=== PATIENT | female | born 1955 | race Caucasian/White ===

== ENCOUNTER 2024-07-21 12:51 | Outpatient (AMB) | payer MEDICARE, SELFPAY ==
--- NOTE | 2024-07-21 12:52 | A.OFFVIS_ITS ---
Vital Signs 07/21/24 12:56 Height 5 ft 4 in Weight 174 lb BMI 29.9 BP 162/92 H Blood Pressure Location Rt brachial Position Sitting Intake Visit Reasons: ENP: Dizziness/Tremors Intake Note: Patient presents for dizziness and tremors Allergies niacin Allergy (Severe, Verified 07/21/24 12:56) Itching acetaminophen [From Percocet] Allergy (Unknown, Verified 07/21/24 12:56) Unknown oxycodone [From Percocet] Allergy (Unknown, Verified 07/21/24 12:56) Unknown Medication List - Last Reconciled 07/21/24 by Niesha Ingram MD ezetimibe 10 mg PO fenofibrate 160 mg PO folic acid 1 mg PO glipizide ER mg PO icosapent ethyl (Vascepa) 2 grams PO BID insulin glargine (Lantus Solostar U-100 Insulin) units subcut levothyroxine 75 mcg PO metformin 500 mg PO omeprazole 20 mg PO DAILY pioglitazone 30 mg PO rosuvastatin 40 mg PO sertraline 150 mg PO HPI Comments Details: 69y/o Right handed female comes for evaluation of tremors and headaches. she has fh/o tremors in her father and sister. She started noticing tremors in both his hands about 5 years ago It was mild but now she feels it affects her daily activities, like drinking, eating, writing any action with fine motor coordination.she denies any leg tremors, head tremors. The tremors are mostly with action but occasionally at rest as well.Any stress worsens the the tremors. 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 She also reports increased headaches for past 3 years after she had a fall and had nasal fracture.she used to get sinus headaches prior to that. They can be unilateral or occipital , no light sensitivity or noise sensitivity , no nausea. she has 1-2 /week , lasts few hrs. she takes tylenol or motrin and tries to sleep. [facility] Medical History (Updated 07/21/24 @ 13:36 by Niesha Ingram MD) Generalized headaches Nasal bone fracture Hypersomnia Snoring Benign familial tremor Mixed hyperlipidemia Elevated serum creatinine Mild anemia Hypercalcemia Chronic cough Tremor Dizziness Type 2 diabetes mellitus GERD (gastroesophageal reflux disease) Anxiety Hypothyroidism HTN (hypertension) Hyperlipidemia Surgical History H/O: hysterectomy History of prolapse of bladder History of rotator cuff surgery Hx of colonoscopy H/O endoscopy History of arthroscopy of left shoulder Family History Father CHF (congestive heart failure) Asthma Social History Alcohol intake: current Patient Tobacco Use Status: Never used Tobacco Physical Exam Vital Signs: Last Vital Signs BP 162/92 H 07/21/24 12:56 BMI result Body Mass Index 29.9 Const General: cooperative, healthy appearing and comfortable Nutritional Appearance: average body habitus Orientation/consciousness: patient oriented x3 Eyes Pupils: Equal, round and reactive pupils present Neuro Other: Mild no-no head tremor Norbert hands postural and action tremors Mallampatti grade 4 nasal congestion General: patient oriented x3, gait normal, tone normal, moves all extremities and no focal motor deficits Cranial nerves: Yes Facial sensation intact/muscles of mastication intact, Yes Equal, round and reactive pupils present, Yes Bilaterally intact EOM present, Yes Nystagmus not present, Yes Normal facial strength present and Yes Midline tongue present Cognition (Neuro): normal cognition Gait exam (Neuro): Normal gait present Motor exam (neuro): 5/5 motor strength present throughout and Normal motor muscle tone present throughout Deep tendon reflexes (DTR's): Right triceps reflex intensity grade: 1+, Left triceps reflex intensity grade: 1+, Rt Biceps (C5, C6): 1+, Left biceps reflex intensity grade: 1+, Right brachioradialis reflex intensity grade: 1+, Left brachioradialis reflex intensity grade: 1+, Right patellar reflex intensity grade: 1+ and Left patellar reflex intensity grade: 1+ Coordination: [id number]-wj-kwot test normal Assessment & Plan Assessment & Plan (1) Benign familial tremor: Code(s): G25.0 - Essential tremor Category: Medical (2) Snoring: Code(s): R06.83 - Snoring Category: Medical (3) Hypersomnia: Code(s): G47.10 - Hypersomnia, unspecified Category: Medical (4) Generalized headaches: Comment: likely SInus headaches Code(s): R51.9 - Headache, unspecified Category: Medical Plan I will refer her to OT for hand exercises and will consider gabapentin if her tremors worsens ENT eval for nasal congestion, h/o nasal bone fracture Home sleep test to r/o sleep apnea suggested to be consistent with her flonase and zyrtec to help with congestion Orders: Orders OT Evaluation and Treatment Today G25.0 - Essential tremor RT home sleep study Today G47.10 - Hypersomnia, unspecified, R06.83 - Snoring Referrals Ear/Nose/Throat Referral S02.2XXA - Fracture of nasal bones, initial encounter for closed fracture Coding Level of Care Code New Pt Level 4 (85673) Diagnoses Benign familial tremor G25.0 Snoring R06.83 Hypersomnia G47.10 Generalized headaches R51.9
[2024-07-21 12:56] VITALS: BP 162/92; BMI 29.9
== END 2024-07-21 13:30 | disposition home or self-care (01) ==
PROVIDERS: PCP Internal Medicine; Visit Provider Psychiatry & Neurology Neurology
DX: G25.0 Essential tremor (principal); R06.83 Snoring; G47.10 Hypersomnia, unspecified; R51.9 Headache, unspecified
CPT/HCPCS: 99204

== ENCOUNTER → 2024-07-21 12:51 | Outpatient (BNVA) | payer MEDICARE, SELFPAY | PROVIDERS: PCP Internal Medicine; Visit Provider Psychiatry & Neurology Neurology | DX: G25.0 Essential tremor (principal); R06.83 Snoring; G47.10 Hypersomnia, unspecified; R51.9 Headache, unspecified; S02.2XXA Fracture of nasal bones, initial encounter for closed fracture; X58.XXXA Exposure to other specified factors, initial encounter; Y93.9 Activity, unspecified; Y92.9 Unspecified place or not applicable; Y99.9 Unspecified external cause status | CPT/HCPCS: 99202 ==

== ENCOUNTER → 2024-09-21 15:07 | Outpatient (REF) | payer MEDICARE, SELFPAY | LOC: HO.SL 15:07 | PROVIDERS: PCP Internal Medicine; Visit Provider Psychiatry & Neurology Neurology | DX: R06.83 Snoring (principal); G47.10 Hypersomnia, unspecified | CPT/HCPCS: 95806 ==

== ENCOUNTER → 2024-09-21 15:20 | Outpatient (BNV) | payer MEDICARE, SELFPAY | PROVIDERS: PCP Internal Medicine; Visit Provider Psychiatry & Neurology Neurology | DX: R06.83 Snoring (principal); G47.10 Hypersomnia, unspecified | CPT/HCPCS: 95806 ==

== ENCOUNTER 2025-01-19 10:27 | Outpatient (AMB) | payer MEDICARE, SELFPAY ==
[2025-01-19 10:43] VITALS: BP 124/68; PULSE 83; O2SAT 100; BMI 28.1
--- NOTE | 2025-01-19 10:43 | MHC.OFFVIS ---
Vital Signs 01/19/25 10:43 Height 5 ft 4 in Weight 164 lb BMI 28.1 BP 124/68 Blood Pressure Location Lt brachial Position Sitting Pulse 83 Pulse Source Pulse Oximeter Pulse Oximetry (%) 100 Oxygen Delivery Method Room Air Intake Visit Reasons: 6 mnts Hr Receptionist Required: No Accompanied by: Self / Same As Patient Allergies niacin Allergy (Severe, Verified 01/19/25 10:55) Itching acetaminophen (From Percocet) Allergy (Unknown, Verified 01/19/25 10:55) Unknown oxycodone (From Percocet) Allergy (Unknown, Verified 01/19/25 10:55) Unknown HPI Comments Details: 69y/o Right handed female comes follow up evaluation of tremors and headaches. Headaches are better- it is usually worse in winter . she did not see ENT yet for DNS and h/o nasal fracture. she did not have time to go to OT .Her tremors are stable except when eating. History from initial visit 2023-she has fh/o tremors in her father and sister. She started noticing tremors in both his hands about 5 years ago It was mild but now she feels it affects her daily activities, like drinking, eating, writing any action with fine motor coordination.she denies any leg tremors, head tremors. The tremors are mostly with action but occasionally at rest as well.Any stress worsens the the tremors. 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 She also reports increased headaches for past 3 years after she had a fall and had nasal fracture.she used to get sinus headaches prior to that. They can be unilateral or occipital , no light sensitivity or noise sensitivity , no nausea. she has 1-2 /week , lasts few hrs. she takes tylenol or motrin and tries to sleep. [facility] Medical History Generalized headaches Nasal bone fracture Hypersomnia Snoring Benign familial tremor Mixed hyperlipidemia Elevated serum creatinine Mild anemia Hypercalcemia Chronic cough Tremor Dizziness Type 2 diabetes mellitus GERD (gastroesophageal reflux disease) Anxiety Hypothyroidism HTN (hypertension) Hyperlipidemia Surgical History H/O: hysterectomy History of prolapse of bladder History of rotator cuff surgery Hx of colonoscopy H/O endoscopy History of arthroscopy of left shoulder Family History Father CHF (congestive heart failure) Asthma Social History Alcohol intake: current Patient Tobacco Use Status: Never used Tobacco Physical Exam Vital Signs: Last Vital Signs Pulse 83 01/19/25 10:43 BP 124/68 01/19/25 10:43 Pulse Ox 100 01/19/25 10:43 Oxygen Delivery Method Room Air 01/19/25 10:43 BMI result Body Mass Index 28.1 Const General: cooperative, healthy appearing and comfortable Nutritional Appearance: average body habitus Orientation/consciousness: patient oriented x3 Eyes Pupils: Equal, round and reactive pupils present Neuro Other: Mild no-no head tremor Norbert hands postural and action tremors Mallampatti grade 4 nasal congestion General: patient oriented x3, gait normal, tone normal, moves all extremities and no focal motor deficits Cranial nerves: Yes Facial sensation intact/muscles of mastication intact, Yes Equal, round and reactive pupils present, Yes Bilaterally intact EOM present, Yes Nystagmus not present, Yes Normal facial strength present and Yes Midline tongue present Cognition (Neuro): normal cognition Gait exam (Neuro): Normal gait present Motor exam (neuro): 5/5 motor strength present throughout and Normal motor muscle tone present throughout Coordination: bvcnbn-pe-dpsq test normal Assessment & Plan Assessment & Plan (1) Benign familial tremor: Code(s): G25.0 - Essential tremor Category: Medical (2) Generalized headaches: Comment: likely SInus headaches Code(s): R51.9 - Headache, unspecified Category: Medical Plan Suggested hand exercises , weighted utensils and will consider gabapentin if her tremors worsens ENT eval for nasal congestion, h/o nasal bone fracture suggested to be consistent with her flonase and zyrtec to help with congestion Coding Level of Care Code Est Pt Level 4 (74744) Diagnoses Benign familial tremor G25.0 Generalized headaches R51.9
--- OUTSIDE RECORDS SUMMARY | 2025-01-19 11:18 | XMS_ITS | Continuity of Care Document ---
Author Organization [facility] Address [address] [place] [address] Phone [phone] Care Team Providers Care Market Research Executive Name Role Phone Ap Aguirre MD Care Team Information Professor Of Sport Management + [phone] Ap Aguirre M.D. Care Team Information Professor Of Sport Management + [phone] Problems Active Problems Provider Date Essential hypertension Imer Sheppard Onset: 03/18/2022 Type 2 diabetes mellitus Ruba Coates M.D. Onset: 03/18/2022 Kidney stone Ruba Coates M.D. Ons et: 03/18/2022 Chronic kidney disease Imer Sheppard Onset: 03/18/2022 Dyslipidemia Ruba Coates M.D. Ons et: 03/18/2022 Tremor Ruab Coates M.D. Ons et: 03/18/2022 Anxiety Ruba Coates M.D. Ons et: 03/18/2022 Gastroesophageal reflux disease Ruba Sahu M.D. Onset: 03/18/2022 Osteoarthritis Ruba Coates M.D. Ons et: 03/18/2022 Gout Ruba Coates M.D. Ons et: 03/18/2022 Disorder of rotator cuff Ruba Coates M.D. Onset: 03/18/2022 Primary hypothyroidism Imer Sheppard Onset: 03/18/2022 Chronic anemia Ruba Coates M.D. Ons et: 03/18/2022 Primary hyperparathyroidism Ruba elmore M.D. Onset: 03/18/2022 Diabetes mellitus Ruba Coates M.D. 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 ETOH Use Occasionally consumes alcoho l Tobacco Use Start: Unknown Patient has never smoked Allergies and adverse reactions Active Allergies Criticality Reaction Severity Comments Date Percocet Unable to assess criticality Itching 01/11/2022 Niacin Unable to assess criticality Itching 03/18/2022 Jardiance Unable to assess criticality Nausea 03/18/2022 Trulicity Unable to assess criticality Nausea 03/18/2022 Medications Active Medications SIG Qnty Indications Ordering Provider Date Freestyle Beatrice 3 Plus/Sensor/Glucose Monitoring SystemMisc apply one sensor to skin every 15 days 6units E11Trent9 Ruba Coates M.D. 10/25/2024 Z79.4 Mounjaro2.5mg/0.5ML Solution Auto-Inject 2.5 mg subcutaneously every week 6ml E11.21 Ruba Coates M.D. 10/24/2024 Basaglar Kfkfpru111Gani/ML Solution Pen-Inject inject 28 units subcutaneously once daily as directed by physician 45ml E11.65 Ruba Coates M.D. 08/24/2024 Z79.4 Pioglitazone ZJI26vh Tablets 1 tab by mouth every day every morning 90tabs Ruba Coates M.D. 10/19/2023 BD Uf Mini Pen Needle 1NQR42T Use One Pen Needle Daily as Directed 100units Allyson Coates M.D. 12/03/2022 Z79.4 Freestyle Beatrice 2/[place]/Flash Glucose Monitoring Bjgbwx1Liianw Device use as directed with sensors dx: e11.9 1units Ruba Coates M.D. 10/23/2022 Freestyle Beatrice 2/Sensor/Flash Glucose Monitoring Ovmiyo8Vbrtmr Misc 1 Sensor To Skin Every Fourteen Days as Directed DX:E11.9 6units Allyson Coates M.D. 10/23/2022 Aricutvfgow017xx Tablets 1 po qd Ruba Coates M.D. 01/11/2022 Rosuvastatin Qlapzld95sw Tablets 1 po qd Ruba Coates M.D. 01/11/2022 Vitamin L441jfg (2000 Ut) Capsules 1 by mouth every day Ruba Coates M.D. 01/11/2022 Glipizide ER5mg Tablets ER 24HR Take 2 Tablets By Mouth In The A.M 270tabs Ruba Coates M.D. 01/11/2022 Levothyroxine Ezglib68kvm Tablets 1 by mouth every day Ruba Coates M.D. 01/11/2022 Metformin NQL665fe Tablets take 2 tablets by mouth twice a day 360tabs Ruba Coates M.D. 01/11/2022 Mdckmwivll99wm Tablets 1 tabs by mouth every day 90tabs Ruba Coates M.D. 01/11/[address] 1 po qd Ruba Coates M.D. 01/11/2022 Sertraline FTH054rp Tablets 1 1/2 tablets by mouth every day Ruba Coates M.D. 01/11/2022 Zyrtec Wmzcpco62hw Tablets 1 by mouth every day at bedtime Ruba Coates M.D. Icosapent Kkceb0xc Capsules 2 bid Unknown Folic Ogfe0pz Tablets 1 by mouth every day Unknown Fkjldnprx37ed Tablets 1 by mouth every day Unknown Potassium Citrate KN01Zmc (1620 mg) Tablets ER Take 1 Tablet By Mouth In The Morning And 1 Tablet In The Evening. Take With Annelise Unknown Vital Signs Date Vital Result Comment 10/24/2024 10:22am BP Systolic 138 mmHg BP Diastolic 70 mmHg Heart Rate 85 /min Height 62.25 inches 5'2.25 Weight 171.12 lb BMI (Body Mass Index) 31.0 kg/m2 Results Test Acquired Date Facility Test Result H/L Range Note Hemoglobin A1c 10/24/2024 [facility] Hemoglobin A1c 6.6% Glucose Fingerstick 10/24/2024 Inhouse Glucose Fingerstick 207 TSH Rfx on Abnormal to Free T4 08/08/2024 [facility] TSH Rfx on Abnormal to Free T4 4.270 uIU/mL 0.450-4.5 00 PTH, Intact 08/08/2024 [facility] PTH, Intact 70 pg/mL High 15-65 Vitamin D, 25-Hydroxy, Total 08/08/2024 [facility] Vitamin D, 25-Hydroxy, Total 20 ng/mL Low 1 TSH RFX On Abnormal To Free T4 07/05/2024 [facility] TSH RFX On Abnormal To Free T4 <pending> PTH, Intact 07/05/2024 [facility] PTH, Intact <pending> Vitamin D 25 Hydroxy Esoterix 07/05/2024 [facility] Vitamin D 25 Hydroxy Esoterix <pending> Glucose Fingerstick 06/15/2024 [facility]house Glucose Fingerstick 130 Hemoglobin A1c 06/15/2024 [facility]house Hemoglobin A1c 7.0% Hemoglobin A1c 02/02/2024 [facility] Hemoglobin A1c 6.0% Glucose Fingerstick 02/02/2024 [facility]house Glucose Fingerstick 176 Albumin/Creatini ne Ratio, Random Urine 10/02/2023 [facility] Creatinine, Urine 38.2 mg/dL Not Estab. Albumin, Urine 13.9 ug/mL Not Estab. Alb/Creat Ratio 36 mg/gcreat High 0-29 2 Glucose Fingerstick 10/02/2023 [facility]house Glucose Fingerstick 212 Glucose Fingerstick 01/28/2023 Inhouse Glucose Fingerstick 215 PTH, Intact 12/26/2022 [facility] PTH, Intact 84 pg/mL High (15-65) TSH With Reflex To FT4 12/26/2022 [facility] TSH With Reflex To FT4 1.88 uIU/mL (0.4-4.2) TSH With Reflex To FT4 10/25/2022 [facility] TSH With Reflex To FT4 <pending> PTH, Intact 10/25/2022 [facility] PTH, Intact <pending> Glucose Fingerstick 10/22/2022 [facility] Glucose Fingerstick 268 Glucose Fingerstick 03/18/2022 [facility] Glucose Fingerstick 193 Hemoglobin A1c 03/18/2022 Inhouse Hemoglobin A1c 9.3% 1 Reference Range: All Ages: Target levels 30 - 100 2 Normal: 0 - 29 Moderately increased: 30 - 300 Severely increased: >300 Procedures Date Code Description Status 10/24/2024 68538 Glucose Monitoring Interpeta tion And Report Completed 06/15/2024 54928 Glucose Monitoring Interpeta tion And Report Completed 02/02/2024 56542 Glucose Monitoring Interpeta tion And Report Completed 10/02/2023 49373 Glucose Monitoring Interpeta tion And Report Completed 01/28/2023 56050 Glucose Monitoring Interpeta tion And Report Completed Medical Devices Description No Information Available Encounters Type Date Location Provider Dx Diagnosis Office Visit 10/24/2024 10:15a Main Office Ruba Coates M.D. E11.21 Type 2 diabetes mellitus with diabetic nephropathy N18.30 Chronic kidney disea se, stage 3 unspecified N20.0 Calculus of kidney E21.0 Primary hyperparathy roidism E03.9 Hypothyroidism, unsp ecified Z79.4 terminal operator (current) use of insulin M85.80 Oth disrd of bone de nsity and structure, unspecified site I10 Essential (primary) hypertension E78.2 Mixed hyperlipidemia Assessments Date Code Description Provider 10/24/2024 E11.21 Type 2 diabetes mellitus with diabetic nephropathy Ruba Coates M.D. 10/24/2024 N18.30 Chronic kidney d isease, stage 3 unspecified Ruba Coates M.D. 10/24/2024 N20.0 Nephrolithiasis NOS Ruba Coates M.D. 10/24/2024 E21.0 Primary hyperparathyroidism Ruba Coates M.D. 10/24/2024 E03.9 Hypothyroidism, unspecified Ruba Coates M.D. 10/24/2024 Z79.4 terminal operator (current) use of i nsulin Ruba Coates M.D. 10/24/2024 M85.80 Other specified disorders of bone density and structure, unspecified site Ruba Coates M.D. 10/24/2024 I10 Essential (primary) hyperten justin Ruba Coates M.D. 10/24/2024 E78.2 Mixed hyperlipidemia Sonja Coates M.D. Plan of Treatment Future Appointment(s):* 02/23/2025 10:45 am - Ruba Coates M.D. at Main Office 03/18/2022 - Ruba Coates M.D.* E11.9 Type 2 diabetes mellitus without complications * E03.9 Hypothyroidism, unspecified * E21.0 Primary hyperparathyroidism * N20.0 Nephrolithiasis NOS Functional Status Description No Information Available Mental Status Description No Information Available Referrals Description No Information Available
--- OUTSIDE RECORDS SUMMARY | 2025-01-19 11:18 | XMS_ITS | Clinical Summary ---
Author Organization [facility] [address] [facility] Address [address] [place] [address] Phone Care Team Providers Care Wardrobe Coordinator Name Role Phone Bronson Venegas MD Primary Care Provider [phone] Allergies Active Allergy Reactions Criticality Noted Date Comments Niacin Itching,Other,Unknown 05/27/2022 Other Reaction(s): HOT FLASHES Oxycodone-Acetaminop hen Itching 02/02/2019 Other Reaction(s): ITCHY Medications omeprazole OTC (PriLOSEC OTC) 20 mg EC tabletIndication s:Gastroesophage al reflux disease, unspecified whether esophagitis present Take 1 tablet (20 mg total) by mouth 1 (one) time each day. Do not crush, chew, or split. 90 tablet 3 09/12/2024 Active Surgical History Surgery Date Site/Laterality Comments SHOULDER SURGERY PROCEDURE:SHOULDER SURGERY;COMMENT:left Medical History Medical History Date Comments Asthma DX:Asthma Diabetes mellitus ([facility] V 24, [facility] V28) DX:Diabetes mellitus ([facility]) Gout DX:Gout GERD (gastroesophageal reflux disease) DX:GERD (gastroesophageal reflux disease) Family History Medical History Relation Name Comments Heart disease Father Hyperlipidemia Father Hypertension Mother Relation Name Status Comments Father Mother Social History Tobacco Use Types Packs/Day Years Used Date Smoking Tobacco: Never Smokeless Tobacco: Never Alcohol Use Standard Drinks/Week Comments Yes 1 (1 standard drink = 0.6 oz pur e alcohol) Comments Unknown Sex and Gender Information Value Date Recorded Sex Assigned at Not on file Legal Sex Female 11:59 AM EST Gender Identity Not on file Sexual Orientation Not on file Obstetrics History Last Filed Vital Signs Vital Sign Reading Time Taken Comments Blood Pressure - - Pulse - - Temperature - - Respiratory Rate - - Oxygen Saturation - - Inhaled Oxygen Concentration - - Weight 76.2 kg (168 lb) 09/12/2024 9:41 AM EDT Height 165.1 cm (5' 5 ) 09/12/2024 9:41 AM EDT Body Mass Index 27.96 09/12/2024 9:41 AM EDT Plan of Treatment Health Maintenance Due Date Last Done Comments Breast Cancer Screening 1955 Colorectal Cancer Screening: Colonoscopy 05/27/2022 Falls Risk Assessment 05/27/2022 Hepatitis C Screening 05/27/2022 Medicare Annual Wellness Visit 05/27/2022 Osteoporosis Screening (Bone Density Screening) 05/27/2022 Social Influencers of Health Screening 05/27/2022 Depression Screening 06/29/2024 COVID-19 Vaccine ( season) 2024 04/01/2024, 04/03/2023, 04/01/2022, Additional history exists Influenza Vaccine (#1) 2025 , 04/03/2023, 05/09/2022, Additional history exists DTaP,Tdap,and Td Vaccines (2 - Td or Tdap) 02/19/2031 02/19/2021 Zoster Vaccines Completed 05/09/2022, 09/27/2021 Pneumococcal Vaccine: 50+ Years Completed 04/16/2023 RSV Immunization Adult Patients Completed 04/22/2024 HIB Vaccines Aged Out No longer eligi ble based on patient's age to complete this topic HPV Vaccines Aged Out No longer eligi ble based on patient's age to complete this topic Hepatitis A Vaccines Aged Out No long er eligible based on patient's age to complete this topic Hepatitis B Vaccines Aged Out No long er eligible based on patient's age to complete this topic IPV Vaccines Aged Out No longer eligi ble based on patient's age to complete this topic MMR Vaccines Aged Out No longer eligi ble based on patient's age to complete this topic Meningococcal ACWY Vaccine Aged Out N o longer eligible based on patient's age to complete this topic Meningococcal B Vaccine Aged Out No l onger eligible based on patient's age to complete this topic RSV Immunization Patients Under 20 months Aged Out No longer eligible based on patient's age to complete this topic Varicella Vaccines Aged Out No longer eligible based on patient's age to complete this topic Insurance [employer]UE [employer] - [place] MEDICARE ADVANTAGE Care Teams Wardrobe Coordinator Relationship Specialty Start Date End Date Bronson Venegas MD [address] [place] PCP - General Mechanical Engineering Lecturer 01/24/19
--- OUTSIDE RECORDS SUMMARY | 2025-01-19 11:18 | XMS_ITS ---
Author Name [facility] Organization Unknown Care Team Organization Name Specialty Phone Email Start Date End [facility] OVIDIO REYNA Primary [facility] 05/29/20222023
--- OUTSIDE RECORDS SUMMARY | 2025-01-19 11:18 | XMS_ITS | Clinical Summary ---
Author Organization [facility] Address [address] [place] [phone] Phone Care Team Providers Care Pasteuriser Operator Name Role Phone Ap Aguirre MD Primary Care Provider [phone] Allergies Active Allergy Reactions Criticality Noted Date Comments Dulaglutide Nausea 05/27/2022 Empagliflozin Nausea 05/27/2022 Niacin Itching,Other (see comments) 05/27/2022 Other Reaction(s): HOT FLASHES Oxycodone-Acetaminophen 02/02/2019 Other Reaction(s): ITCHY Medications acetaminophen (TYLENOL) 325 MG tablet Take 650 mg by mouth 2024 Active ezetimibe (ZETIA) 10 MG tablet Take 10 mg by mouth 1 (one) time each day For 30 days 07/19/2024 Active fenofibrate (TRIGLIDE) 160 MG tablet Take 160 mg by mouth 1 (one) time each day Active folic acid (FOLVITE) 1 MG tablet Take 1,000 mcg by mouth 1 (one) time each day 05/09/2024 Active glipiZIDE (GLUCOTROL XL) 5 MG 24 hr tablet TAKE 2 TABLETS BY MOUTH IN THE A.M., 1 TABLET IN THE P.M. Active Vascepa 1 g capsule 08/03/2024 Active Lantus SoloStar 100 UNIT/ML injection 36 Units Active levothyroxine (SYNTHROID, LEVOTHROID) 75 MCG tablet Take 75 mcg by mouth 1 (one) time each day Active metFORMIN XR (GLUCOPHAGE-XR) 500 MG 24 hr tablet Take 5 mg by mouth in the morning and 5 mg in the evening. 02/03/2020 Active pioglitazone (ACTOS) 30 MG tablet Take 30 mg by mouth 1 (one) time each day in the morning 07/28/2024 Active rosuvastatin (CRESTOR) 40 MG tablet Take 40 mg by mouth 1 (one) time each day Active sertraline (ZOLOFT) 100 MG tablet 150 mg Active omeprazole OTC (PriLOSEC OTC) 20 MG EC tablet Take 20 mg by mouth in the morning. 09/12/2024 Active lisinopril 10 MG tabletIndicatio ns:Stage 3a chronic kidney disease (HCC),Proteinur ia, not otherwise specified Take 1 tablet (10 mg total) by mouth 1 (one) time each day 90 tablet 1 09/15/2024 Active Potassium Citrate ER 15 MEQ (1620 MG) tablet controlled-rele aseIndications: Renal stone Take 15 mEq by mouth in the morning and 15 mEq in the evening. Take with meals. 180 tablet 11 09/15/2024 Active Tirzepatide (Mounjaro) 2.5 MG/0.5ML solution auto-injector Inject under the skin 10/24/2024 Active Active Problems Problem Noted Date Diagnosed Date Proteinuria, not otherwise specified 09/15/2024 Anemia in chronic kidney disease 09/15/2024 Vitamin D deficiency, not otherwise specified Hypertension 09/15/2024 Prolapse of vaginal vault after hysterectomy 11/2024 Cystocele 08/04/2024 Stage 3a chronic kidney disease 08/04/2024 Renal stone 08/04/2024 Non-traumatic partial tear of right rotator cuff 02/03/2019 Impingement syndrome of right shoulder 9 Arthritis of right acromioclavicular joint 02/03 Encounters Date Type Department Care Team Description 12/15/2024 Office Communication [facility] [place] [id number] [phone] Kandace Boo 11/28/2024 Telephone [facility] [address] [phone] Ximena Nair 11/22/2024 Office Communication [facility] [address] [phone] Ximena Weeks ARNP 11/22/2024 Orders Only [facility] [address] [phone] Ximena Weeks ARNP Stage 3a chronic kidney disease (HCC) (Primary Dx); Hypertension 11/10/2024 9:30 AM EDT Office Visit [facility] [address] [phone] Weeks ROXANNA Bueno Stage 3a chronic kidney disease (HCC) (Primary Dx); Hypertension; Renal stone; Proteinuria, not otherwise specified; Anemia in chronic kidney disease from Last 3 Months Immunizations Immunization Administration Dates Next Due Tdap 02/19/2021 Social History Tobacco Use Types Packs/Day Years Used Date Smoking Tobacco: Never Assessed Alcohol Use Standard Drinks/Week Comments Never 0 (1 standard drink = 0.6 oz pur e alcohol) Comments Unknown Sex and Gender Information Value Date Recorded Sex Assigned at Not on file Legal Sex Female 2:12 PM EST Gender Identity Not on file Sexual Orientation Not on file Last Filed Vital Signs Vital Sign Reading Time Taken Comments Blood Pressure 120/70 11/10/2024 9:29 AM EDT Pulse 94 11/10/2024 9:29 AM EDT Temperature - - Respiratory Rate - - Oxygen Saturation 100% 11/10/2024 9:29 AM EDT Inhaled Oxygen Concentration - - Weight 75.3 kg (166 lb) 11/10/2024 9:29 AM EDT Height - - Body Mass Index - - Plan of Treatment Upcoming Encounters Date Type Department Care Team (Late st Contact Info) Description 05/10/2025 10:15 AM EST Office Visit [facility] [address] [phone] Breonna WeeksROXANNA mclean [address] [place] [phone] Health Maintenance Due Date Last Done Comments Breast Cancer Screening 1957 Pneumococcal Vaccine: 50+ Ye ars (1 of 2 - PCV) 1976 Colorectal Cancer Screening: Annual FOBT 2006 Colorectal Cancer Screening: Colonoscopy 2006 Colorectal Cancer Screening: Sigmoidoscopy 2006 Diabetes: Hemoglobin A1C 08/04/2024 Diabetes: Ophthalmology Exam 08/04/2024 Diabetes: Pedal Pulse Checked 08/04/2024 Diabetes: Sensory Foot Exam 08/04/2024 Diabetes: Visual Foot Exam 08/04/2024 Influenza Vaccine (#1) 2025 Hepatitis B Vaccine Aged Out No longe r eligible based on patient's age to complete this topic Procedures Procedure Name Priority Date/Time Associated Diagnosis Comments BASIC METABOLIC PANEL Routine 01/04/2025 2:40 PM EDT Stage 3a chronic kidney disease (HCC) Hypertension BASIC METABOLIC PANEL Routine 11/11/2024 12:44 PM EDT Stage 3a chronic kidney disease (HCC) from Last 3 Months Results * (ABNORMAL) Basic metabolic panel (01/04/2025 2:40 PM EDT) Only the most recent of2 resultswithin the time period is included. Glucose 108(H) 70 - 99 mg/dL [facility] BUN 32(H) 8 - 27 mg/dL [facility] Creatinine 1.17(H) 0.57 - 1.00 mg/dL [facility] eGFR CKD-EPI CR 2020 51(L) >59 mL/min/1.7 3 [facility] BUN/Creatinine Ratio 27 12 - 28 [facility] Sodium 139 134 - 144 mmol/L [facility] Potassium 4.4 3.5 - 5.2 mmol/L [facility] Chloride 107(H) 96 - 106 mmol/L [facility] Bicarbonate (CO2) 18(L) 20 - 29 mmol/L [facility] Calcium 10.4(H) 8.7 - 10.3 mg/dL [facility] Blood Venous blood / Unknown 01/04/2025 2:40 PM EDT 01/04/2025 Ximena Weeks [employer]TING [employer] LAB BLOOD ORDERABLES Final Result [facility] [address] [place] [phone] from Last 3 Months Insurance Care Teams Pasteuriser Operator Relationship Specialty Start Date End Date Ap Aguirre MD [address] PCP - General Internal Medicine 08/04/24
--- OUTSIDE RECORDS SUMMARY | 2025-01-19 11:18 | XMS_ITS | Clinical Summary ---
Author Organization [facility] Address [address] [place] [address] Care Team Providers Care Flanging Operator Name Role Phone Bronson Venegas MD Primary Care Provider [phone] Allergies Active Allergy Reactions Criticality Noted Date Comments Dulaglutide Nausea Only 05/27/2022 Empagliflozin Nausea Only 05/27/2022 Niacin Other (See Comments),Itching 022 Oxycodone-Acetaminophen 02/02/2019 Medications Medication Sig Dispensed Refills Start Date End Date Status atorvastatin (LIPITOR) tablet 80 mg Take 80 mg by mouth daily. 3 10/30/2018 Active fenofibrate (TRIGLIDE) 160 MG tablet Take 160 mg by mouth daily. 2 12/08/2018 Active glipiZIDE (GLUCOTROL XL) ER 24 hr tablet 5 mg Take 5 mg by mouth 2 (two) times a day. 3 11/21/2018 Active levothyroxine (SYNTHROID, LEVOXYL) tablet 75 mcg Take 75 mcg by mouth daily. 3 11/14/2018 Active lisinopril (PRINIVIL,ZESTRIL ) tablet 10 mg Take 10 mg by mouth daily. 3 12/31/2018 Active metFORMIN (GLUCOPHAGE) tablet 500 mg TAKE 1 TABLET IN THE MORNING AND 2 TABLETS AT BEDTIME 3 12/31/2018 Active sertraline (ZOLOFT) 100 MG tablet Take 100 mg by mouth daily. 3 11/21/2018 Active gabapentin (NEURONTIN) 300 MG capsule Take 1 capsule (300 mg total) by mouth daily. Start first dose the evening prior to surgery 3 capsule 0 12/26/2019 Active promethazine (PHENERGAN) 12.5 MG tablet Take 1 tablet (12.5 mg total) by mouth every 8 (eight) hours as needed for nausea. Do not take until after surgery 4 tablet 0 12/26/2019 Active cephalexin (KEFLEX) 500 MG capsule Take 1 capsule (500 mg total) by mouth 4 (four) times a day. Do not take until after surgery 4 capsule 0 12/26/2019 Active HYDROcodone-aceta minophen (NORCO) 5-325 MG per tablet Take 1 tablet by mouth every 6 (six) hours as needed for pain. 25 tablet 0 12/26/2019 Active metFORMIN (GLUCOPHAGE-XR) ER 24 hr tablet 500 mg Take 1,000 mg by mouth 2 (two) times a day. 0 02/03/2020 Active rosuvastatin (CRESTOR) tablet 40 mg Take 40 mg by mouth daily. 0 02/03/2020 Active omeprazole (PriLOSEC) 20 MG capsule Take 20 mg by mouth daily. 0 03/19/2020 Active FLOVENT HFA 110 MCG/ACT inhaler 1 puff 2 (two) times a day. 0 03/27/2020 Active TRULICITY 1.5 MG/0.5ML SOPN INJECT ONE PEN SUBCUTANEOUSLY ONCE WEEKLY 0 02/28/2020 Active fenofibrate (TRIGLIDE) 160 MG tablet 0 05/14/2020 Active Lantus SoloStar 100 UNIT/ML injection INJECT 26 UNITS SUBCUTANEOUSLY ONCE DAILY DIRECTED 0 04/29/2022 Active Active Problems Problem Noted Date Diagnosed Date Impingement syndrome of right shoulder 9 Nontraumatic incomplete tear of right rotator cu ff 02/03/2019 Arthritis of right acromioclavicular joint 02/03 Family History Medical History Relation Name Comments Heart disease Father Hyperlipidemia Father Hypertension Mother Relation Name Status Comments Father Mother Social History Tobacco Use Types Packs/Day Years Used Date Smoking Tobacco: Never Smokeless Tobacco: Never Alcohol Use Standard Drinks/Week Comments Yes 1 (1 standard drink = 0.6 oz pur e alcohol) Sex and Gender Information Value Date Recorded Sex Assigned at Not on file Gender Identity Not on file Sexual Orientation Not on file Job Start Date Occupation Industry Not on file Not on file Not on file Last Filed Vital Signs Vital Sign Reading Time Taken Comments Blood Pressure - - Pulse - - Temperature - - Respiratory Rate - - Oxygen Saturation - - Inhaled Oxygen Concentration - - Weight 74.8 kg (165 lb) 05/27/2022 9:57 AM EST Height 162.6 cm (5' 4 ) 05/27/2022 9:57 AM EST Body Mass Index 28.32 05/27/2022 9:57 AM EST Plan of Treatment Health Maintenance Due Date Last Done Comments Hepatitis C Screening 1955 COVID-19 Vaccine (#1) 1957 Pneumococcal Vaccine (1 of 2 - PCV) 1963 Depression Screening 1969 BMI Counseling 1975 Preventative Health Evaluation 1975 DTap / Tdap / Td (1 - Tdap) 1976 Colon Cancer Screening (Colonoscopy) 2002 Breast Cancer Screening (Mammogram) 2007 Shingrix-Zoster Vaccine (1 of 2) 2007 Fall Risk Assessment 2022 Osteoporosis Screening (DEXA Scan) 2022 Influenza Vaccine (#1) 2025 RSV Adult > 60+ Yrs or Pregn ant (1 - 1-dose 75+ series) 2032 Hepatitis B Vaccines Aged Out No long er eligible based on patient's age to complete this topic RSV Ped < 20 months Aged Out No longe r eligible based on patient's age to complete this topic Care Teams Flanging Operator Relationship Specialty Start Date End Date Bronson Venegas MD [address] [place] [id number] PCP - General Case Maker 01/24/19
== END 2025-01-19 11:18 | disposition home or self-care (01) ==
LOC: HO.HSMS 10:27
PROVIDERS: PCP Internal Medicine; Visit Provider Psychiatry & Neurology Neurology
DX: G25.0 Essential tremor (principal); R51.9 Headache, unspecified
CPT/HCPCS: 99214

== ENCOUNTER → 2025-01-19 10:27 | Outpatient (BNVA) | payer MEDICARE, SELFPAY | PROVIDERS: PCP Internal Medicine; Visit Provider Psychiatry & Neurology Neurology | DX: G25.0 Essential tremor (principal); R51.9 Headache, unspecified | CPT/HCPCS: 99212 ==